=== PATIENT | male | born 1995 | race African-American/Black ===

== ENCOUNTER 2020-07-09 11:27 | Emergency (ER) | payer MEDICARE, MEDICAID ==
[~2020-07-09] VITALS: Ht 170.2 cm; Wt 86.0 kg
[2020-07-09] MEDS ORDERED: IBUPROFEN 800MG TABLET PO ONE (11:45)
[2020-07-09 11:57] VITALS: BP 152/59
== END 2020-07-09 14:35 | disposition home or self-care (01) ==
LOC: ER 11:53
DX: S92.351A Displaced fracture of fifth metatarsal bone, right foot, initial encounter for closed fracture (principal); J45.909 Unspecified asthma, uncomplicated; W01.0XXA Fall on same level from slipping, tripping and stumbling without subsequent striking against object, initial encounter; Y93.89 Activity, other specified; Y92.018 Other place in single-family (private) house as the place of occurrence of the external cause
CPT/HCPCS: 73610; 73630; 73700; 99284